=== PATIENT | male | born 1985 | race Caucasian/White ===

== ENCOUNTER 2018-01-22 18:35 | Emergency (ER) | payer OTHER ==
[~2018-01-22] VITALS: Ht 177.8 cm; Wt 77.1 kg
[~2018-01-22 18:35] MED LIST: ANUSOL-HC25 MG R; MIRALAX POWDER17 G1 PO; MOTRIN800 MG PO; MULTIPLE VITAMI1 T25 PO; NEXIUM40 MG PO; SEPTRA DS 800 M1 TAB PO
[2018-01-22] MEDS ORDERED: Motrin,Rufen800 MG PO ×2 (20:55→21:19)
== END 2018-01-22 20:55 | disposition home or self-care (01) ==
LOC: ED 18:35
DX: S20.211A Contusion of right front wall of thorax, initial encounter (principal); F17.200 Nicotine dependence, unspecified, uncomplicated; Z79.899 Other long term (current) drug therapy; W01.0XXA Fall on same level from slipping, tripping and stumbling without subsequent striking against object, initial encounter; Y93.89 Activity, other specified; Y92.69 Other specified industrial and construction area as the place of occurrence of the external cause; Y99.9 Unspecified external cause status

== ENCOUNTER 2022-11-30 15:19 | Emergency (ER) | payer OTHER ==
[~2022-11-30] VITALS: Wt 74.8 kg
[~2022-11-30 15:19] MED LIST changes: +Motrin,Rufen800 MG PO
[2022-11-30] MEDS ORDERED: AMOX-CLAV 875-1 EACH PO (17:30)
== END 2022-11-30 17:34 | disposition home or self-care (01) ==
LOC: ED 15:19
DX: S62.623A Displaced fracture of middle phalanx of left middle finger, initial encounter for closed fracture (principal); Z79.899 Other long term (current) drug therapy; F17.200 Nicotine dependence, unspecified, uncomplicated; W22.8XXA Striking against or struck by other objects, initial encounter; Y93.89 Activity, other specified; Y92.89 Other specified places as the place of occurrence of the external cause; Y99.8 Other external cause status

== ENCOUNTER 2023-12-16 20:58 | Emergency (ER) | payer OTHER ==
[~2023-12-16] VITALS: Ht 177.8 cm; Wt 86.2 kg
[~2023-12-16 20:58] MED LIST changes: +AMOX-CLAV 875-1 EACH PO
== END 2023-12-17 01:10 | disposition home or self-care (01) ==
LOC: ED 20:58
DX: B34.9 Viral infection, unspecified (principal); K21.9 Gastro-esophageal reflux disease without esophagitis; Z98.890 Other specified postprocedural states; Z20.822 Contact with and (suspected) exposure to COVID-19

== ENCOUNTER 2024-12-31 02:17 | Emergency (ER) | payer OTHER ==
[~2024-12-31] VITALS: Ht 177 cm; Wt 81.9 kg
[2024-12-31] MEDS ORDERED: Ondansetron Hydrochloride 4 MG/2 ML VIAL IV ONE (02:35)
[2024-12-31 02:46] LABS: BILIRUBIN Negative (Negative); BLOOD 2+ (Negative); CLARITY Clear (Clear); COLOR Yellow (Yellow); GLUCOSE Negative (Negative); KETONE Trace (Negative); LEUKO ESTERASE Negative (Negative); NITRITE Negative (Negative); PH 5.5 (4.5-8.0); SPECIFIC GRAVITY 1.025 (1.001-1.030); UROBILINOGEN 0.2 E.U./dl (0.0-1.0)
[2024-12-31] MEDS ORDERED: Ketorolac Tromethamine 30 MG/ML VIAL IV ONE (03:10)
[2024-12-31] MEDS ORDERED: Tamsulosin Hydrochloride 0.4 MG CAP PO ONE (03:10)
[2024-12-31 03:13] LABS: RBC 21-30 rbc/hpf (0-2); WBC 0-2 wbc/hpf (0-5)
[2024-12-31 03:14] LABS: BACTERIA 1+
[2024-12-31] MEDS ORDERED: HYDROCODONE-AC1 EAC1 PO (03:41)
[2024-12-31] MEDS ORDERED: Ondansetron4 MG PO (03:41)
[2024-12-31] MEDS ORDERED: FLOMAX0.4 MG PO (03:41)
== END 2024-12-31 03:49 | disposition home or self-care (01) ==
LOC: ED 02:17
PROVIDERS: Internal Medicine
DX: N13.2 Hydronephrosis with renal and ureteral calculous obstruction (principal); R11.2 Nausea with vomiting, unspecified; K21.9 Gastro-esophageal reflux disease without esophagitis; Z98.890 Other specified postprocedural states